=== PATIENT | female | born 1970 | race Caucasian/White ===

== ENCOUNTER 2020-03-08 10:42 | Outpatient (CLI) | payer BC ==
--- NOTE | 2020-03-08 11:58 | MMO ---
Left Breast MAMMO [facility]. CLINICAL HISTORY: Patient is 50 years old and is seen for diagnostic exam. The patient has no family history of breast cancer. The patient has no personal history of cancer. VIEWS: The views performed were: left craniocaudal spot compression with tomosynthesis; left mediolateral oblique spot compression with tomosynthesis; and left mediolateral with tomosynthesis. FILMS COMPARED: The present examination has been compared to prior imaging studies performed at [facility] on 03/03/2020, and at [facility] on 03/08/2020. This study has been interpreted with the assistance of computer-aided detection. MAMMOGRAM FINDINGS: No mammographic or sonograhic abnormality is seen in the left upper outer breast. There is a small cyst at 5:00 on US corresponding to the nodular density on mammo. There are no suspicious masses, suspicious calcifications, or new areas of architectural distortion. IMPRESSION: THERE IS NO MAMMOGRAPHIC EVIDENCE OF MALIGNANCY. A ROUTINE FOLLOW-UP MAMMOGRAM IN 1 YEAR IS RECOMMENDED. THE RESULTS OF THIS EXAM WERE SENT TO THE PATIENT. ACR BI-RADS Category 2 - Benign finding MAMMOGRAPHY NOTE: 1. A negative mammogram report should not delay a biopsy if a dominant of clinically suspicious mass is present. 2. Approximately 10% to 15% of breast cancers are not detected by mammography. 3. Adenosis and dense breasts may obscure an underlying neoplasm. Reported by: RENATO CAICEDO MD Electonically Signed: [id number]
--- NOTE | 2020-03-08 12:09 | ULT ---
LEFT BREAST ULTRASOUND: HISTORY: Limited left breast ultrasound. FINDINGS: Correlation is made with the mammograms of 03/03/2020 and today. Sonographic evaluation of the left upper outer breast demonstrates no abnormality. There is 4 mm cyst at the 5 o'clock position of the left breast corresponding to the focal density on the mammogram. IMPRESSION: BIRADS category 2 - benign findings. Return to annual mammographic screening. POS: OFF
== END 2020-03-08 10:43 | disposition home or self-care (01) ==
LOC: BICMAMMO 10:42
PROVIDERS: ATTEND Obstetrics & Gynecology
DX: R92.2 Inconclusive mammogram (principal)
CPT/HCPCS: G0279